=== PATIENT | female | born 1995 | race African-American/Black ===

== ENCOUNTER 2020-01-19 17:22 | Emergency (ER) | payer OTHER ==
[~2020-01-19] VITALS: Ht 170.2 cm; Wt 102.2 kg
[2020-01-19] MEDS ORDERED: GUAI473L75 PO (19:25)
[2020-01-19] MEDS ORDERED: AZIT250T PO (19:25)
--- NOTE | 2020-01-19 19:25 | PHYS DOC ---
Past Medical History Past Medical History: No Pertinent History Past Surgical History: Other Additional Past Surgical Histo: ECTOPIC W/REMOVAL OF L FALLOPIAN TUBE Smoking Status: Current Every Day Smoker Additional Information: 0.3 PPD Alcohol Use: Occasionally General Adult EDM: Chief Complaint: COUGH HPI: HPI: Patient is a 24 year [id number] female with no past medical history currently on no medications presents with a chief complaint of cough with sputum production associated with runny nose slight nasal congestion. Patient does have a cough with sputum production. She denies any fevers chills myalgias. She does states she has a sore throat. Onset of symptoms 2 days progressively becoming worse. Review of Systems: Review of Systems: Review of systems: Constitutional symptoms- No fever, no chills. Eyes- No Discharge, No Visual Loss Respiratory symptoms- No shortness of breath, No wheezing, No Dyspnea on Exertion Cardiovascular Systems; No chest pain, No Palpitations, No syncope Gastrointestinal symptoms: NO abdominal pain, no nausea, no vomiting or diarrhea. Genitourinary symptoms: No dysuria. Musculoskeletal symptoms: No back pain No extremity pain. NEUROLOGICAL Symptoms: No headache, no generalized weakness; No focal Weakness HEENT positive sinus congestion postnasal drip sore throat nasal drainage Heart Score: Risk Factors: Risk Factors: DM, Current or recent (<one month) smoker, HTN, HLP, family history of CAD, obesity. Risk Scores: Score 0 - 3: 2.5% MACE over next 6 weeks - Discharge Home Score 4 - 6: 20.3% MACE over next 6 weeks - Admit for Clinical Observation Score 7 - 10: 72.7% MACE over next 6 weeks - Early Invasive Strategies Allergies: Allergies: Allergies Coded Allergies Type Severity Reaction Last Updated Verified Penicillins Allergy Severe "STOP BREATHING,SWELL UP" 01/19/20 Yes tomato Allergy Unknown UNKNOWN 01/19/20 Yes Physical Exam: PE: General: alert, no acute distress. Skin: warm, dry and intact. Head:: Normocephalic, atraumatic. HEENT positive sinus pressure positive clear nasal drainage Neck: Trachea midline. Eyes: EOMI, Normal conjunctiva, No drainage CARDIOVASCULAR: Regular rate and rhythm RESPIRATORY: No respiratory distress Back: Full range of motion. MUSCULOSKELETAL: Full range of motion of bilateral upper and lower extremities. GASTROINTESTINAL: Abdomen soft without rebound or guarding. NEUROLOGICAL: Alert and noted to person, place and time. No neurological deficits observed Psychiatric: Cooperative. Normal judgment Current Patient Data: Labs: Laboratory Tests Test 01/19/20 18:14 POC Urine HCG, Qualitative Hcg negative (Negative) Vital Signs: Vital Signs Date Time Temp Pulse Resp B/P (MAP) Pulse Ox O2 Delivery O2 Flow Rate FiO2 01/19/20 18:05 98.2 90 17 129/75 (93) 100 Room Air 98.2 EKG: EKG: [] Radiology/Procedures: Radiology/Procedures: [] Impression: Chest x-ray wet read no focal infiltrates FINDINGS: The cardiomediastinal silhouette and pulmonary vessels are within normal limits. The lung and pleural spaces are clear. IMPRESSION: No acute cardiopulmonary process. Flu negative Strep negative Course & Med Decision Making: Course & Med Decision Making Pertinent Labs and Imaging studies reviewed. (See chart for details) [] Rapid strep negative Dragon Disclaimer: Dragon Disclaimer: This electronic medical record was generated, in whole or in part, using a voice recognition dictation system. Departure Departure Impression: Primary Impression: Viral syndrome Additional Impression: Person under investigation for COVID-19 Disposition: 01 DC HOME SELF CARE/HOMELESS Condition: STABLE Referrals: NO PCP (PCP) Patient Instructions: Viral Syndrome Additional Instructions: You have been tested for or diagnosed with COVID-19. It is an infection caused by a new type of coronavirus. COVID-19 will cause cold-like or mild flu symptoms in most. It can cause more severe symptoms like problems breathing in some. There is no treatment for COVID-19. The body will clear the infection over time. Self-care will help to ease discomfort. Steps to Take: Self-Care Rest as needed. Healthy habits may help you feel better. Steps include: Choose healthy foods including fruits and vegetables. Drink water throughout the day. Get plenty of sleep each night. If you smoke, try to quit. It may ease breathing. Avoid alcohol. Keep Others Healthy The virus can spread to others. Droplets are released every time you sneeze or cough. The droplets can get into the mouth, nose, or eyes of people near you and lead to infection. To lower the chances of spreading COVID-19 to others: Stay at home until your doctor has said it is safe to leave. If you tested positive this will mean staying isolated until both of the following are true: At least 7 days have passed since the start of illness. You are free of fever for at least 72 hours without the use of medicine. During this time: - Avoid public areas, events, or transportation. Do not return to work or school until your doctor has said it is safe to do so. - Call ahead if you need to go to a medical center. Let them know you may have COVID-19. It will help them guide you where to go. They may also ask you to wear a facemask when you come to the office. - If you call for emergency medical services, let them know you may have COVID- 19. While at home: - Try to avoid close contact with others. Stay about 6 feet away. - If possible, spend most of your time in a separate room from others. - Use a face mask if you will be in close contact with others such as sharing a room or vehicle. - Have someone wipe down common surfaces in the home. Use household garment sewer hand every day on areas like doorknobs, counters, or sinks. - Cough or sneeze into a tissue. Throw the tissue away right after use. If a tissue is not available, cough or sneeze into your elbow. - Wash your hands often. Wash them after sneezing or coughing. Use soap and water and wash for at least 20 seconds. Alcohol based hand glass cleaner can be used if soap and water is not available. - Do not prepare food for others. Avoid sharing personal items like forks, spoons, or toothbrushes. - Avoid close contact with pets while you are sick. There is no evidence of the virus passing to pets. This is a safety step until more is known about this virus. Isolation can be frustrating. Social interaction can help. Keep in touch with friends and family through phone and tech options. You can still interact with others in your home, just keep a safe distance of about 6 feet. Follow-up: Your doctors office will check in with you to see if there are any changes in your health. You may be asked to keep track of symptoms to share with them. They will also let you know when you are clear to be in public again. Problems to Look Out For: Contact your doctor if your recovery is not going as you expect. Get emergency care if you have problems such as: - Trouble breathing - Nonstop chest pain or pressure - Changes in awareness, confusion, or problems waking - Lips or face have bluish color - Worsening of symptoms If you think you have an emergency, call for emergency medical services right away. [facility] from [facility] Scripts Guaifenesin/Codeine Phosphate (Coditussin AC Liquid) 473 Ml Liquid 10 ML PO Q6-8HRS PRN for COUGH, #100 ML Prov: JAVI CRESPO I DO 01/19/20 Azithromycin (ZITHROMAX) 250 Mg Tablet 1 PKG PO UD, #6 TAB Prov: JAVI CRESPO I DO 01/19/20 JAVI CRESPO I DO Jan 19, 2020 19:25
--- NOTE | 2020-01-19 19:45 | RAD ---
Exam: Chest one view INDICATION: Cough TECHNIQUE: Frontal view of the chest Comparisons: None FINDINGS: The cardiomediastinal silhouette and pulmonary vessels are within normal limits. The lung and pleural spaces are clear. IMPRESSION: No acute cardiopulmonary process. Electronically signed by: Víctor Alfaro MD (01/19/2020 7:42 PM) [id number]
[2020-01-19 20:18] LABS: INFLUENZA A PATIENT NEGATIVE (NEGATIVE); INFLUENZA B PATIENT NEGATIVE (NEGATIVE)
[2020-01-19 20:27] VITALS: BP 124/77
--- NOTE | 2020-01-21 10:02 | NUR ---
IP: Informed pt of negative COVID test. Pt verbalized understanding.
== END 2020-01-19 20:35 | disposition home or self-care (01) ==
LOC: ER 17:22
DX: B34.9 Viral infection, unspecified (principal); Z20.828 Contact with and (suspected) exposure to other viral communicable diseases; I10 Essential (primary) hypertension; K21.9 Gastro-esophageal reflux disease without esophagitis; G40.909 Epilepsy, unspecified, not intractable, without status epilepticus; F17.200 Nicotine dependence, unspecified, uncomplicated; Z86.73 Personal history of transient ischemic attack (TIA), and cerebral infarction without residual deficits; Z88.0 Allergy status to penicillin; Z88.8 Allergy status to other drugs, medicaments and biological substances
CPT/HCPCS: 71045; 81025; 87070; 87804; 87880; 99284; C9803; U0003

== ENCOUNTER 2020-02-25 16:31 | Emergency (ER) | payer OTHER ==
[~2020-02-25] VITALS: Ht 170.2 cm; Wt 102.5 kg
[~2020-02-25 16:31] MED LIST: AZIT250T PO; GUAI473L75 PO
[2020-02-25 17:01] VITALS: BP 123/62
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
[2020-02-25] MEDS ORDERED: METH4TAB2 PO (18:19)
[2020-02-25] MEDS ORDERED: DICL50TA2 PO (18:19)
[2020-02-25] MEDS ORDERED: CYCL10TA2 PO (18:19)
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
== END 2020-02-25 18:44 | disposition home or self-care (01) ==
LOC: ER 16:31
DX: G89.11 Acute pain due to trauma (principal); M54.5 Low back pain; M54.6 Pain in thoracic spine; F17.210 Nicotine dependence, cigarettes, uncomplicated; Z98.890 Other specified postprocedural states; Z88.0 Allergy status to penicillin; Z91.013 Allergy to seafood; V98.8XXA Other specified transport accidents, initial encounter; Y93.89 Activity, other specified; Y92.89 Other specified places as the place of occurrence of the external cause; Y99.8 Other external cause status
CPT/HCPCS: 72128; 72131; 81025; 99285

== ENCOUNTER 2021-07-02 17:27 | Emergency (ER) | payer OTHER ==
[~2021-07-02] VITALS: Ht 170.2 cm; Wt 99.3 kg
[~2021-07-02 17:27] MED LIST changes: +CYCL10TA19 PO; +DICL50TA2 PO; +METH4TAB2 PO
[2021-07-02 17:33] VITALS: BP 136/81
[2021-07-02] MEDS ORDERED: IV NORMAL SALINE 1000ML BAG 1,000 ML IV ONE (18:00)
[2021-07-02 18:03] LABS: BACTERIA,URINE FEW /HPF (0-FEW); RBC,URINE 0 /HPF (0-2)
[2021-07-02] MEDS ORDERED: KETOROLAC 30 MG/ML VIAL. IVP ONE (18:15)
[2021-07-02] MEDS ORDERED: ONDANSETRON PF 4 MG/2 ML VIAL. IVP ONE (18:15)
[2021-07-02] MEDS ORDERED: FAMOTIDINE 20 MG/2 ML VIAL IVP ONE (18:15)
--- NOTE | 2021-07-02 18:44 | PHYS DOC ---
Past Medical History Past Medical History: No Pertinent History (YAMILETH COLE APRN) Past Surgical History: Other Additional Past Surgical Histo: ECTOPIC W/REMOVAL OF L FALLOPIAN TUBE,hernia repair (YAMILETH COLE APRN) Smoking Status: Current Every Day Smoker Alcohol Use: Occasionally (YAMILETH COLE APRN) General Adult EDM: Chief Complaint: NAUSEA/VOMITING/DIARRHEA HPI: HPI: Patient is a 26-year-old female presents emergency department with chief complaint of nausea and vomiting, patient states she woke up this morning and started throwing up, reports upper abdominal burning sensation, denies chest pain, denies shortness of breath, denies recent fever or chills. Patient denies vaginal discharge, lesions to her vagina, denies increased urinary frequency, urinary pressure, urinary burning, hematuria or other dysuria. Patient states she does not think she ate bad food as she ate the same things as her family did at home and no one else is having the same symptoms as she. Patient states she may be as she has irregular periods at reports her last menstrual cycle 24 May 2021. Patient denies diaphoretic episodes, syncopal or near syncopal episodes. Patient denies other physical complaints or physical concerns. (YAMILETH COLE APRN) Review of Systems: Review of Systems: 14 body systems of review of systems have been reviewed. See HPI for pertinent positives and negative responses, otherwise all other systems are negative, nonpertinent or noncontributory. Constitutional: Negative except as outlined in HPI above. Skin: Negative except as outlined in HPI above. Eyes: Negative except as outlined in HPI above. HENT: Negative except as outlined in HPI above. Respiratory: Negative except as outlined in HPI above. Cardiovascular: Negative except as outlined in HPI above. GI: Negative except as outlined in HPI above. : Negative except as outlined in HPI above. Musculoskeletal: Negative except as outlined in HPI above. Integument: Negative except as outlined in HPI above. Neurologic: Negative except as outlined in HPI above. Endocrine: Negative except as outlined in HPI above. Lymphatic: Negative except as outlined in HPI above. Psychiatric: Negative except as outlined in HPI above. (YAMILETH COLE APRN) Heart Score: C/O Chest Pain: No Risk Factors: Risk Factors: DM, Current or recent (<one month) smoker, HTN, HLP, family history of CAD, obesity. Risk Scores: Score 0 - 3: 2.5% MACE over next 6 weeks - Discharge Home Score 4 - 6: 20.3% MACE over next 6 weeks - Admit for Clinical Observation Score 7 - 10: 72.7% MACE over next 6 weeks - Early Invasive Strategies (YAMILETH COLE APRN) Current Medications: Current Medications Medications (Trade) Dose Ordered Sig/Padmini Start Time Stop Time Status Last Admin Dose Admin Famotidine (Pepcid Vial) 40 mg 1X ONCE 07/02/21 18:15 07/02/21 18:16 DC 07/02/21 18:10 40 MG Ketorolac Tromethamine (Toradol 30mg Vial) 30 mg 1X ONCE 07/02/21 18:15 07/02/21 18:16 DC 07/02/21 18:10 30 MG Ondansetron HCl (Zofran) 4 mg 1X ONCE 07/02/21 18:15 07/02/21 18:16 DC Sodium Chloride 1,000 ml @ 1,000 mls/hr 1X ONCE 07/02/21 18:00 07/02/21 18:59 07/02/21 17:53 1,000 MLS/HR (YAMILETH COLE APRN) Allergies: Allergies: Allergies Coded Allergies Type Severity Reaction Last Updated Verified Penicillins Allergy Severe "STOP BREATHING,SWELL UP" 01/19/20 Yes tomato Allergy Severe swelling, sob 02/25/20 Yes (YAMILETH COLE APRN) Physical Exam: PE: Constitutional: Well developed, well nourished, no acute distress, non-toxic appearance. 26-year-old female in no apparent distress. HENT: Normocephalic, atraumatic. Eyes: Conjunctiva normal, no discharge. Neck: Normal range of motion, no stridor. Cardiovascular: No cyanosis appreciated, distal cap refill less than 2 seconds. Lungs & Thorax: Patient is in no respiratory distress, no audible adventitious lung sounds appreciated. Abdomen: Normal skin color, abdomen flat, no specific tenderness to palpation, bowel sounds positive and normal all 4 quadrants. No masses, no megaly. Skin: Warm, dry, no erythema, no rash. Back: No tenderness, no deformities. Extremities: No tenderness, no cyanosis, no clubbing, ROM intact, no edema. Neurologic: Alert and oriented X 3, normal motor function, normal sensory function, no focal deficits noted. Psychologic: Affect normal, judgement normal, mood normal. (YAMILETH COLE APRN) Current Patient Data: Labs: Laboratory Tests Test 07/02/21 17:31 07/02/21 17:36 Urine Collection Type Unknown Urine Color (Auto) Yellow Urine Turbidity Hazy Urine pH (Auto) 8.0 (<5.0-8.0) Urine Specific [place] 1.030 (1.000-1.030) Urine Protein (Auto) 50 mg/dL (Negative) Urine Glucose (Auto)(UA) Negative mg/dL (Negative) Urine Ketones (Auto) 60 mg/dL (Negative) Urine Blood (Auto) Negative (Negative) Urine Nitrite Negative (Negative) Urine Bilirubin (Auto) Negative (Negative) Urine Urobilinogen (Auto) 8 mg/dL (Normal) Urine Leukocyte Esterase (Auto) Large (Negative) Urine RBC 0 /HPF (0-2) Urine WBC 5-10 /HPF (0-4) Urine Squamous Epithelial Cells Many /LPF Urine Bacteria Few /HPF (0-FEW) Urine Mucus Mod /LPF POC Urine HCG, Qualitative Hcg negative (Negative) Vital Signs: Vital Signs Date Time Temp Pulse Resp B/P (MAP) Pulse Ox O2 Delivery O2 Flow Rate FiO2 07/02/21 17:33 98.9 101 20 136/81 (99) 100 Room Air 98.9 (YAMILETH COLE APRN) EKG: EKG: [] (YAMILETH COLE APRN) Radiology/Procedures: Radiology/Procedures: [] (YAMILETH COLE APRN) Course & Med Decision Making: Course & Med Decision Making Pertinent Labs and Imaging studies reviewed. (See chart for details) 26-year-old female, vital signs reviewed, presents emerged from concerning nausea vomiting with abdominal burning. Physical presentation concerning for dyspepsia. Will order urinalysis assay, urine test, IV pain medication, IV Pepcid, normal saline bolus. Upon reevaluation of the patient, patient states she is feeling much better, sti ll has mild burning in her stomach area, will order GI cocktail, patient states she just talk to her boyfriend, states he told her she might need to be checked for sexually transmitted diseases. Patient continues to deny vaginal discharge, pelvic pain, rashes or lesions to her vagina however is now concerned about STIs. Discussed with patient will send urine for GC and chlamydia, will defer pelvic examination as patient wishes to self swab for wet prep. Will prophylactically treat for gonorrhea and chlamydia. Wet prep results pending at this time. Wet prep results negative for trichomonas, yeast infection, is concerning for ba cterial vaginosis, discussed all findings with patient, will treat for bacterial vaginosis as well, discussed safe sex practices with patient, return to ER precautions or concerns, follow-up with primary care physician for ongoing symptoms, patient gave verbal understanding of and is amenable to ED discharge planning. Discussed with the patient all findings and diagnostic testing as well as the need to follow-up with their primary care provider for further evaluation and treatment or return to the ED if any new or worsening symptoms. Strict return precautions were also discussed at length, the patient voiced understanding and agreement with the discharge planning. The patient was nontoxic in appearance, in no apparent distress, and hemodynamically stable at the time of disposition. (YAMILETH COLE APRN) Course & Med Decision Making Patients Care and treatment plan provided by ER Nurse Practitioner. I was available for consult. Patient's chart reviewed. (JAVI CRESPO DO) Jessica Disclaimer: Jessica Disclaimer: This electronic medical record was generated, in whole or in part, using a voice recognition dictation system. (YAMILETH COLE APRN) Departure Departure Impression: Primary Impression: Nausea and vomiting Qualified Codes: R11.2 - Nausea with vomiting, unspecified Additional Impressions: STI (sexually transmitted infection) Bacterial vaginosis Urinary tract infection Qualified Codes: N39.0 - Urinary tract infection, site not specified; R31.9 - Hematuria, unspecified Referrals: NO PCP (PCP) Patient Instructions: Nausea and Vomiting, Sexually Transmitted Disease, Urinary Tract Infection Additional Instructions: You were seen in the emergency department for nausea vomiting. Your symptoms resolved after 1 L of fluids along with nausea and pain medications. You are not for urine test however you do show signs of a urinary tract infection. As we discussed you had worries of sexually transmitted diseases, you have test pending in the lab for gonorrhea chlamydia however related to your concerns with you when I have made a joint decision to treat you for these sexually transmitted diseases prior to knowing the results. You do not have a yeast infection, you do not have trichomonas, your labs did show signs indicating bacterial vaginosis, I am also treating you for this as well. I will also prescribe some nausea medication in the event your nausea does return. Please follow-up with your primary care physician for ongoing symptoms. Thank you for visiting our Emergency Department. It was a pleasure taking care of you today in the emergency department and we appreciate you trusting us with your care. If any additional problems come up don't hesitate to return to visit us. Please follow up with your primary care provider so they can plan additional care if needed and know about the problem that you had. If symptoms worsen come back to the Emergency Department. Any concerning symptoms that start such as chest pain, shortness of air, weakness or numbness on one side of the body, running high fevers or any other concerning symptoms return to the ER. Scripts Metronidazole (METRONIDAZOLE) 500 Mg Tablet 1 TAB PO BID for BV for 7 Days, #14 TAB 0 Refills Prov: YAMILETH COLE APRN 07/02/21 Doxycycline Hyclate (DOXYCYCLINE HYCLATE) 100 Mg Capsule 1 CAP PO BID for STI, #14 CAP 0 Refills Prov: YAMILETH COLE APRN 07/02/21 YAMILETH COLE APRN Jul 02, 2021 18:44 JAVI CRESPO I DO Jul 03, 2021 19:04
[2021-07-02] MEDS ORDERED: LIDO:MAALOX 1:1 20 ML SINGLE DOSE. SWSW ONE (19:15)
[2021-07-02] MEDS ORDERED: cefTRIAXone IM 500 MG VIAL. IM ONE (19:15)
[2021-07-02] MEDS ORDERED: DOXY100C3 PO (19:35)
[2021-07-02] MEDS ORDERED: METR-34 PO (19:35)
== END 2021-07-02 21:13 | disposition home or self-care (01) ==
LOC: ER 17:27
DX: N39.0 Urinary tract infection, site not specified (principal); R31.9 Hematuria, unspecified; N76.0 Acute vaginitis; B96.89 Other specified bacterial agents as the cause of diseases classified elsewhere; A64 Unspecified sexually transmitted disease; R11.2 Nausea with vomiting, unspecified; F17.200 Nicotine dependence, unspecified, uncomplicated; Z88.0 Allergy status to penicillin; Z91.018 Allergy to other foods
CPT/HCPCS: 81001; 81025; 87086; 87491; 87591; 96361; 96372; 96374; 96375; 99284; J0696; J1885; J3490; J7030; Q0111